=== PATIENT | female | born 1990 | race Hispanic/Latino ===

== ENCOUNTER 2020-04-22 12:19 | Observation (INO) | payer MEDICAID, OTHER ==
[~2020-04-22] VITALS: Ht 165.1 cm; Wt 79.8 kg
[2020-04-22 13:43] VITALS: BP 105/60
== END 2020-04-22 13:54 | disposition home or self-care (01) ==
LOC: EDH 12:19 → LDH 12:20
PROVIDERS: ADMIT Obstetrics & Gynecology; ATTEND Obstetrics & Gynecology
DX: O60.03 Preterm labor without delivery, third trimester (principal); R10.2 Pelvic and perineal pain; Z3A.36 36 weeks gestation of pregnancy
CPT/HCPCS: 99284; G0378

== ENCOUNTER 2020-05-10 23:29 | Inpatient (IN) | payer MEDICAID ==
[~2020-05-10] VITALS: Ht 165.1 cm; Wt 79.8 kg
[2020-05-11] MEDS ORDERED: LACTATED RINGERS 1000ML 1,000 ML IV PRN (00:42)
[2020-05-11] MEDS ORDERED: PREN-196 PO (00:56)
[2020-05-11 00:57] VITALS: BP 106/66
[2020-05-11 01:18] LABS: HEMATOCRIT 32.5 % (36-48); MEAN CORPUSCULAR HGB CONC 32.6 g/dL (32.0-36.0); MEAN CORPUSCULAR VOLUME 82.7 fL (79-99); RED BLOOD CELL COUNT(AUTO) 3.93 MIL/uL (4.00-5.50); RED CELL DISTRIBUTION WIDTH 15.3 % (11.0-15.5); WHITE BLOOD COUNT (AUTO) 8.9 K/uL (4.8-10.8)
[2020-05-11] MEDS ORDERED: MEPERIDINE-PF 50 MG/ML SYG ONE (01:41)
[2020-05-11] MEDS ORDERED: MEPERIDINE-PF 50 MG/ML SYG IVP ONE (01:45)
[2020-05-11] MEDS: PROMETHAZINE HCL 25 MG/ML 1ML AMPULE IM SCH ×2 (03:00→07:21)
[2020-05-11] MEDS: LACTATED RINGERS 1000ML 1,000 ML IV SCH ×2 (03:34→06:17)
[2020-05-11] MEDS ORDERED: PROMETHAZINE HCL 25 MG/ML 1ML AMPULE IM SCH (06:45)
[2020-05-11] MEDS ORDERED: OXYTOCIN-LR 20 UNITS/1000 ML 1,000 ML IV ONE (07:17)
[2020-05-11] MEDS ORDERED: LIDOCAINE HCL 1% 20 ML VIAL ONE (07:18)
[2020-05-11] MEDS: MEPERIDINE-PF 50 MG/ML SYG IVP SCH (07:22)
[2020-05-11] MEDS ORDERED: OXYTOCIN-LR 20 UNITS/1000 ML 1,000 ML IV SCH ×2 (08:15→08:45)
[2020-05-11] MEDS ORDERED: OXYTOCIN 10 USP UNITS/ML 20 UNIT in LACTATED RINGERS 1000ML 1,000 ML IV SCH (08:15)
[2020-05-11] MEDS ORDERED: MEASLES/MUMPS/RUBELLA VACCINE, LIVE 0.5 ML/VIAL SQ PRN (09:15)
[2020-05-11] MEDS ORDERED: ACETAMINOPHEN-CODEINE 300/30MG TAB PO PRN (09:15)
[2020-05-11] MEDS ORDERED: DIPH,PERTUSS(ACELL),TET VAC/PF 0.5 ML VIAL IM PRN (09:15)
[2020-05-11] MEDS ORDERED: BENZOCAINE/LANOLIN/ALOE VERA 60 ML AEROSOL TP PRN (09:15)
[2020-05-11] MEDS ORDERED: LANOLIN 30GM OINTMENT TP PRN (09:15)
[2020-05-11] MEDS ORDERED: WITCH HAZEL 1 PAD TP PRN (09:15)
[2020-05-11] MEDS ORDERED: ACETAMINOPHEN 325 MG TAB PO PRN (09:15)
[2020-05-11] MEDS: IBUPROFEN 600 MG TABLET PO PRN ×2 (11:02→20:19)
[2020-05-11 11:14] VITALS: BP 115/63
[2020-05-11 15:43] VITALS: BP 97/58
--- NOTE | 2020-05-11 19:09 | NUR ---
REPORT GIVEN TO Haylie GOODEN RN
[2020-05-11 19:48] VITALS: BP 109/75
[2020-05-11] MEDS: DOCUSATE SODIUM 100 MG CAP PO SCH (20:19)
--- NOTE | 2020-05-11 23:00 | NUR ---
SHOWER patient up to bathroom and showered. Gown changed and octavio care done by patient. New mesh panties provided. Patient tolerated well.
[2020-05-12 00:07] VITALS: BP 110/66
--- NOTE | 2020-05-12 03:45 | NUR ---
REPORT Report given to Blanca Avendaño RN and patient care endorsed
[2020-05-12 04:15] VITALS: BP 96/55
[2020-05-12] MEDS: IBUPROFEN 600 MG TABLET PO PRN ×2 (04:16→10:42)
[2020-05-12] MEDS: MEPERIDINE-PF 50 MG/ML SYG IVP SCH (06:45)
[2020-05-12 08:00] VITALS: BP 110/67
--- NOTE | 2020-05-12 08:00 | NUR ---
DR. ROCK ROUNDED AND DISCHARGED PATIENT TO HOME. DENIES HAVING ANY PROBLEMS. FUNDUS IS FIRM AND LOCHIA HAS BEEN SMALL. DISCHARGE ORDER GIVEN AND INFORMED TO CALL FOR FOLLOW UP APPOINTMENT WITH DR. LICEA.
[2020-05-12] MEDS: DOCUSATE SODIUM 100 MG CAP PO SCH (08:33)
--- NOTE | 2020-05-12 09:00 | NUR ---
PATIENT CALLED RE NEEDING ASSISTANCE AND NOTED PATIENT HAD PASSED CLOT WITH SOME TISSUE LIKE ATTACHED TO CLOT. WAS ABLE TO PASSED CLOT WITHOUT ANY PROBLEMS. ENCOURAGED PATIENT TO AMBULATE IN CASE SHE HAS ANY OTHER CLOTS THAT NEED TO BE EXPELLED. NO OTHER CLOTS NOTED AND PATIENT HAS HAD VERY LITTLE VAGINAL BLEEDING.
--- NOTE | 2020-05-12 10:30 | NUR ---
DISCHARGE INSTRUCTIONS GIVEN AT THIS TIME AND PATIENT REQUESTED MOTRIN AND WAS GIVEN FOR UTERINE CRAMPING. PATIENT WAS INSTRUCTED ON DOSAGE AND FREQUENCY OF MOTRIN OVER THE COUNTER FOR USE AT HOME FOR PAIN MANAGEMENT. VERBALIZED UNDERSTANDING INSTRUCTIONS GIVEN.
[2020-05-12 12:00] VITALS: BP 111/69
--- NOTE | 2020-05-12 12:00 | NUR ---
PATIENT WAS TAKEN VIA W/C CARRYING BABY IN ARMS AND WERE BOTH DISCHARGED TO HER SPOUSE. PATIENT REMAINS STABLE AND DEIS PAIN.
[2020-05-13 21:07] LABS: HEPATITIS Bs ANTIGEN SCREEN P Negative (Negative)
== END 2020-05-12 12:00 | disposition home or self-care (01) | DRG 560 ==
LOC: EDH 23:29 → OBSVTOIN 23:30 → LDH 23:30 → WSH 05-11 10:54
PROVIDERS: ADMIT Obstetrics & Gynecology; ATTEND Obstetrics & Gynecology
PROC: 10E0XZZ Delivery of Products of Conception, External Approach (ICD-10-PCS; principal; 2020-05-11)
PROC: 3E0234Z Introduction of Serum, Toxoid and Vaccine into Muscle, Percutaneous Approach (ICD-10-PCS; 2020-05-11)
PROC: 3E0134Z Introduction of Serum, Toxoid and Vaccine into Subcutaneous Tissue, Percutaneous Approach (ICD-10-PCS; 2020-05-11)
DX: O69.81X0 Labor and delivery complicated by cord around neck, without compression, not applicable or unspecified (principal); Z23 Encounter for immunization; Z37.0 Single live birth; Z3A.39 39 weeks gestation of pregnancy
CPT/HCPCS: 36415; 85027; 86592; 86850; 86900; 86901; 87340; 90715; A4351; A4606; G0378; J2175; J2550; J2590; J7120

== ENCOUNTER 2024-01-14 16:56 | Emergency (ER) | payer MEDICAID, OTHER ==
[~2024-01-14] VITALS: Ht 165.1 cm; Wt 74.8 kg
[~2024-01-14 16:56] MED LIST: PREN-196 PO
[2024-01-14 17:53] LABS: APPEARANCE,URINE CLOUDY (CLEAR); BILIRUBIN,URINE NEGATIVE (NEGATIVE); COLOR,URINE LIGHT-YELLOW (YELLOW); GLUCOSE, URINE (UA) NEGATIVE (NEGATIVE); KETONES,URINE NEGATIVE (NEGATIVE); LEUKOCYTE ESTERASE ,URINE 500 Leu/uL (NEGATIVE); NITRATE,URINE NEGATIVE (NEGATIVE); OCCULT BLOOD,URINE NEGATIVE (NEGATIVE); PROTEIN,URINE NEGATIVE (NEGATIVE); UROBILINOGEN,URINE 0.2 mg/dL (0.2-1.0)
[2024-01-14] MEDS: CYCLOBENZAPRINE HCL 10 MG TABLET PO ONE (17:54)
[2024-01-14] MEDS: HYDROCODONE/ACETAMINOPHEN 5/325 MG TAB PO ONE (17:54)
[2024-01-14 17:57] LABS: ADD UA MICROSCOPIC YES
[2024-01-14 17:58] LABS: BACTERIA,URINE RARE /HPF (None Seen); MUCUS,URINE RARE LPF (None Seen); SQUAMOUS EPITHELIAL CELL,UR FEW /HPF (0-2); WBC,URINE 26-50 /HPF (0-1)
[2024-01-14] MEDS ORDERED: AMOX1TAB16 PO (19:15)
[2024-01-14] MEDS ORDERED: IBUP-2077 PO (19:15)
[2024-01-14] MEDS ORDERED: METH4TAB3 PO (19:15)
[2024-01-14] MEDS ORDERED: CYCL-309 PO (19:15)
[2024-01-14 19:34] VITALS: BP 124/52; PULSE 74; RESP 18; O2SAT 98
== END 2024-01-14 19:39 | disposition home or self-care (01) ==
LOC: EDH 16:56
DX: S39.012A Strain of muscle, fascia and tendon of lower back, initial encounter (principal); N30.00 Acute cystitis without hematuria; X58.XXXA Exposure to other specified factors, initial encounter; Y93.89 Activity, other specified; Y92.89 Other specified places as the place of occurrence of the external cause; Y99.8 Other external cause status
CPT/HCPCS: 72100; 81001; 81025; 87088

== ENCOUNTER 2024-09-06 21:10 | Emergency (ER) | payer SELFPAY ==
[~2024-09-06] VITALS: Ht 165.1 cm; Wt 77.1 kg
[~2024-09-06 21:10] MED LIST changes: +AMOX1TAB16 PO; +CYCL-309 PO; +IBUP-2077 PO; +METH4TAB3 PO
[2024-09-06] MEDS: acetaMINOPHEN 500 MG TABLET PO ONE (21:37)
[2024-09-06 21:39] LABS: RAPID GROUP A STREP negative (NEGATIVE)
[2024-09-06 21:41] LABS: INFLUENZA TYPE B Negative For Type B (NEGATIVE)
[2024-09-06 21:43] LABS: COVID19 (SARS ANTIGEN RAPID) PRESUMPTIVE NEGATIVE (NEGATIVE)
[2024-09-06 21:45] LABS: BASOPHILS # (AUTO) 0.05 K/uL (0.00-0.20); BASOPHILS % (AUTO) 0.8 % (0.0-5.0); EOSINOPHILS # (AUTO) 0.04 K/uL (0.00-0.70); EOSINOPHILS % (AUTO) 0.6 % (0.0-8.0); IMMATURE GRANULOCYTE ABSOLUTE 0.02 K/uL (0-1); LYMPHOCYTES # (AUTO) 0.9 K/uL (1.0-4.8); LYMPHOCYTES % (AUTO) 14.1 % (21.0-51.0); MEAN CORPUSCULAR HGB CONC 33.7 g/dL (32.0-36.0); MEAN CORPUSCULAR VOLUME 89.2 fL (79-99); MONOCYTES # (AUTO) 0.6 K/uL (0.1-1.0); MONOCYTES % (AUTO) 9.5 % (3.0-13.0); NEUTROPHILS # (AUTO) 4.7 K/uL (1.8-7.7); NEUTROPHILS % (AUTO) 74.7 % (40.0-77.0); PLATELET COUNT (AUTO) 217 K/uL (130-400); RED BLOOD CELL COUNT(AUTO) 4.26 MIL/uL (4.00-5.50); RED CELL DISTRIBUTION WIDTH 13.1 % (11.0-15.5); WHITE BLOOD COUNT (AUTO) 6.2 K/uL (4.8-10.8)
[2024-09-06 21:51] LABS: INFLUENZA TYPE A Positive For Type A (NEGATIVE)
[2024-09-06 22:05] LABS: APPEARANCE,URINE CLEAR (CLEAR); BILIRUBIN,URINE NEGATIVE (NEGATIVE); COLOR,URINE LIGHT-YELLOW (YELLOW); GLUCOSE, URINE (UA) NEGATIVE (NEGATIVE); KETONES,URINE NEGATIVE (NEGATIVE); LEUKOCYTE ESTERASE ,URINE 75 Leu/uL (NEGATIVE); NITRATE,URINE NEGATIVE (NEGATIVE); OCCULT BLOOD,URINE NEGATIVE (NEGATIVE); PROTEIN,URINE 10 mg/dL (NEGATIVE); UROBILINOGEN,URINE 0.2 mg/dL (0.2-1.0)
[2024-09-06 22:08] LABS: ADD UA MICROSCOPIC YES
[2024-09-06] MEDS ORDERED: ACET-66 PO (22:09)
[2024-09-06] MEDS ORDERED: OSELT15L PO (22:09)
[2024-09-06] MEDS ORDERED: IBUP-2076 PO (22:09)
--- NOTE | 2024-09-06 22:09 | ERN ---
ED Note History of Present Illness Stated Complaint: FLU Chief Complaint: Flu Symptoms Time Seen by MD: 21:13 Dictation: Patient is a 33-year-old female with a past medical history who presented to the ER complaining of flu-like symptoms, which reportedly like a cough, fever , body weakness, body pain. Symptoms started 3 days ago. Allergies: Coded Allergies: No Known Drug Allergies (Unverified Allergy, Unknown, 04/22/20) Home Meds Active Scripts Amoxicillin/Potassium Clav (Amox Tr-K Clv 875-125 mg Tab) 875 Mg-125 Mg Tablet, 1 EACH PO BID for 5 Days, #10 TAB 0 Refills Prov:MICHEAL BUTT NARRATIVE WRITER 01/14/24 Cyclobenzaprine HCl (Cyclobenzaprine HCl) 10 Mg Tablet, 10 MG PO TID, #30 TAB Prov:MICHEAL BUTT NARRATIVE WRITER 01/14/24 Ibuprofen (Ibuprofen 800 mg Tab) 800 Mg Tab, 800 MG PO Q8H PRN for fever or pain, #30 TAB 0 Refills Prov:MICHEAL BUTT NARRATIVE WRITER 01/14/24 Methylprednisolone (Medrol) 4 Mg Tab.ds.pk, 4 MG PO AD, #1 UNIT Prov:MICHEAL BUTT NARRATIVE WRITER 01/14/24 Reported Medications Vit No.124/Iron/FA ( Vitamin Tablet) 1 Each Tablet, 1 EACH PO DAILY, TAB 05/11/20 Past Medical History Past Medical History: No Pertinent History Surgical History: None History: Not Applicable LMP: Aug 04, 2024 Review of System Dictation NEGATIVE EXCEPT PER HPI Constitutional: Reports fever, chills, weakness, body pain Eyes: Negative for injury, pain,redness, and discharge ENT: Negative for injury,pain or swelling Cardiovascular: denies chest pain, palpitations, and edema Respiratory: Negative for shortness of breath, cough, and wheezing, Abdomen/GI: Negative for abdominal pain, nausea, vomiting, diarrhea, and constipation Back: Negative for injury and pain : Negative for injury, bleeding and discharge MS/Extremity: Negative for injury and deformity Skin: Negative for rash, and discoloration Neuro: Negative for headache, weakness, numbness, tingling, and seizure Psych: Negative for suicide ideation, homicidal ideation, and hallucinations Initial Vital Sign VS Vital Signs Date Time Temp Pulse Resp B/P (MAP) Pulse Ox O2 Delivery O2 Flow Rate FiO2 09/06/24 21:11 100.6 116 18 144/93 98 Room Air 0 Physical Exam Dictation General: awake, alert, NAD Head/Face: Normocephalic, atraumatic Eyes: PERRL, EOMI, vision at baseline ENT: oral cavity clear, TMs clear, no signs of infection Neck: Trachea midline, supple, no nuchal rigidity Cardiovascular: RRR, normal S1/S2, No MRGs, no JVD Respiratory: CTAB, no respiratory distress, No rales or wheezes Abdomen: Soft , no tender Skin: Warm, dry, normal turgor, no rash MS/Extremity: Pulses equal, no cyanosis, neurovascular intact, FROM Neuro: COAx4, GCS 15, strength 5/5, CN 2-12 intact, normal cerebellar exam, normal gait, Psych: Normal behavior, mood, and affect normal Results (Laboratory/Radiology) Laboratory/Radiology Laboratory Tests Test 09/06/24 21:13 09/06/24 21:39 Influenza Type A Antigen Positive For Type A Influenza Type B Antigen Negative For Type B SARS-CoV-2 Antigen (Rapid) PRESUMPTIVE NEGATIVE Group A Streptococcus Rapid negative (NEGATIVE) White Blood Count 6.2 K/uL (4.8-10.8) Red Blood Count 4.26 MIL/uL (4.00-5.50) Hemoglobin 12.8 g/dL (12.0-16.0) Hematocrit 38.0 % (36-48) Mean Corpuscular Volume 89.2 fL (79-99) Mean Corpuscular Hemoglobin 30.0 pg (27.0-33.0) Mean Corpuscular Hemoglobin Concent 33.7 g/dL (32.0-36.0) Red Cell Distribution Width 13.1 % (11.0-15.5) Platelet Count 217 K/uL (130-400) Mean Platelet Volume 11.1 fL (7.5-10.5) H Immature Granulocyte % (Auto) 0.3 % (0-1) Neutrophils (%) (Auto) 74.7 % (40.0-77.0) Lymphocytes (%) (Auto) 14.1 % (21.0-51.0) L Monocytes (%) (Auto) 9.5 % (3.0-13.0) Eosinophils (%) (Auto) 0.6 % (0.0-8.0) Basophils (%) (Auto) 0.8 % (0.0-5.0) Neutrophils # (Auto) 4.7 K/uL (1.8-7.7) Lymphocytes # (Auto) 0.9 K/uL (1.0-4.8) L Monocytes # (Auto) 0.6 K/uL (0.1-1.0) Eosinophils # (Auto) 0.04 K/uL (0.00-0.70) Basophils # (Auto) 0.05 K/uL (0.00-0.20) Absolute Immature Granulocyte (auto 0.02 K/uL (0-1) Nucleated Red Blood Cells 0.0 % (0.0-0.19) ED Course ED Course Orders Procedure Category Date Status Time Covid19 (Sars Antigen LAB 09/06/24 Complete Rapid) 21:16 Influenza Type A & B, LAB 09/06/24 Complete Rapid 21:16 Rapid (Group A Strep) LAB 09/06/24 Complete 21:16 Acetaminophen 500mg PHA 09/06/24 Complete Tab (Tylenol 500mg T 21:30 Cbc With Differential LAB 09/06/24 Complete 21:31 Urinalysis Profile LAB 09/06/24 In Process 21:31 Oseltamivir Phosphate PHA 09/06/24 Complete (Tamiflu) 22:00 Current Medications Medications (Trade) Dose Ordered Sig/Richie Route PRN Reason Start Time Stop Time Status Last Admin Dose Admin Acetaminophen (TYLenol 500MG TAB) 1,000 mg ONCE ONCE PO 09/06/24 21:30 09/06/24 21:31 DC 09/06/24 21:37 Oseltamivir Phosphate (Tamiflu) 75 mg ONCE ONCE PO 09/06/24 22:00 09/06/24 22:01 DC Vital Signs Date Time Temp Pulse Resp B/P (MAP) Pulse Ox O2 Delivery O2 Flow Rate FiO2 09/06/24 21:11 100.6 116 18 144/93 98 Room Air 0 Medical Decision Making MDM 33-year-old female who presented with a cough, body weakness, fever x2 days. Symptoms reported the patient is comfortable with flu/COVID Laboratory ordered and was reported to be flu A positive Tylenol/ibuprofen given Tamiflu 1 dose given Recommendation keep hydrated, drink 3-4 L water daily Patient reason recommendation to follow up with her primary care physician as outpatient if symptoms does improvement in the next 5 days DX & DISP Disposition: Discharge Departure Impression: Primary Impression: Influenza A Condition: Stable Scripts Oseltamivir Phosphate (Tamiflu Susp) 75 Mg Susp 1 CAP PO BID for 5 Days, #10 CAP 0 Refills Prov: JESSE THOMASON MD 09/06/24 Ibuprofen (Ibuprofen) 400 Mg Tablet 400 MG PO Q6HPRN, #20 TAB Prov: JESSE THOMASON MD 09/06/24 Acetaminophen (Tylenol) 500 Mg Tab 500 MG PO Q6HPRN, #30 TAB Prov: JESSE THOMASON MD 09/06/24 Additional Instructions: RETURN TO ER FOR ANY ACUTE OR WORSENING SYMPTOMS. FOLLOW-UP IN 1-2 DAYS WITH PRIMARY PROVIDER FOR RECHECK OF TODAY'S SYMPTOMS. Referrals: SELF,REFERRAL (PCP) JESSE THOMASON MD Sep 06, 2024 22:09
[2024-09-06 22:10] LABS: BACTERIA,URINE RARE /HPF (None Seen); MUCUS,URINE RARE LPF (None Seen); SQUAMOUS EPITHELIAL CELL,UR FEW /HPF (0-2)
[2024-09-06] MEDS: ibuPROFEN 600 MG TABLET PO ONE (22:22)
[2024-09-06] MEDS: OSELTAMIVIR PHOSPHATE 75 MG CAP PO ONE (22:22)
[2024-09-06 22:30] VITALS: BP 133/74; PULSE 100; RESP 20; TEMP 99.8; O2SAT 97
== END 2024-09-06 22:37 | disposition home or self-care (01) ==
LOC: EDH 21:10
DX: J10.1 Influenza due to other identified influenza virus with other respiratory manifestations (principal); Z20.822 Contact with and (suspected) exposure to COVID-19
CPT/HCPCS: 36415; 81001; 85025; 87086; 87426; 87804; 87880; 99284